=== PATIENT | male | born 1995 | race Caucasian/White ===

== ENCOUNTER 2019-02-23 15:20 | Emergency (ER) | payer BC ==
[~2019-02-23] VITALS: Ht 177.8 cm; Wt 90.0 kg
[~2019-02-23 15:20] MED LIST: IBUP-1542 PO
[2019-02-23 15:25] VITALS: Ht 177.8 cm; Wt 90.0 kg
[2019-02-23] MEDS ORDERED: KETOROLAC 15 MG INJ IM STA (15:48)
[2019-02-23 16:13] VITALS: BP 114/72; PULSE 65; RESP 18
== END 2019-02-23 16:14 | disposition home or self-care (01) ==
LOC: E/R 15:20
DX: R07.2 Precordial pain (principal)
CPT/HCPCS: 93005; 96372; J1885; Z7502